=== PATIENT | female | born 1995 | race Caucasian/White ===

== ENCOUNTER 2017-03-18 16:13 | Emergency (ER) | payer OTHER ==
[2017-03-18 16:19] VITALS: BP 116/72; PULSE 115; TEMP 99; BMI 25.9
[2017-03-18] MEDS ORDERED: DEXAMETHASONE SOD PHOSPHATE 10 MG/1 ML VIAL IM ONE (17:04)
[2017-03-18] MEDS ORDERED: PENICILLIN G BENZATHINE 1,200,000 UNIT/2 ML PFS IM ONE (17:05)
[2017-03-18] MEDS ORDERED: PENICILLIN G BENZATHINE 2,400,000 UNIT/4 ML PFS ONE (17:05)
[2017-03-18] MEDS ORDERED: DEXAMETHASONE SOD PHOSPHATE 10 MG/1 ML VIAL ONE (17:05)
--- NOTE | 2017-03-18 17:08 | PDOC ---
History of Present Illness - General Chief Complaint: Sore Throat Stated Complaint: SORE THROAT Time Seen by Provider: 03/18/17 17:01 History Source: Patient Exam Limitations: No Limitations - History of Present Illness Initial Comments: 03/18/17 17:05 ` Here with complaints of severe sore throat, swelling, and fevers 3 days. States onset was Friday and is progressively worsened. Is able to swallow fluids but is anorexic Timing/Duration: unsure Severity: mild, moderate Associated Symptoms: reports: fever/chills, headaches, malaise Past History - Travel Traveled outside of the country in the last 30 days: No Close contact w/someone who was outside of country & ill: No - Past Medical History Allergies/Adverse Reactions: Allergies Allergy/AdvReac Type Severity Reaction Status Date / Time No Known Allergies Allergy Verified 03/18/17 16:18 Home Medications: Ambulatory Orders NK [No Known Home Medication] 03/18/17 Asthma: No Cancer: No Cardiac Disorders: No Diabetes: No HTN: No Seizures: No Thyroid Disease: No Other medical history: DENIES - Psycho/Social/Smoking Cessation Hx Suicidal Ideation: No Smoking History: Never smoked Have you smoked in the past 12 months: No Information on smoking cessation initiated: No Hx Alcohol Use: No Drug/Substance Use Hx: No Substance Use Type: None Hx Substance Use Treatment: No Review of Systems - Review of Systems Able to Perform ROS?: Yes Is the patient limited Slovak proficient: Yes Constitutional: Yes: Symptoms Reported, See HPI, Fever, Malaise HEENTM: Yes: Symptoms Reported, See HPI, Nose Congestion, Throat Pain, Throat Swelling, Difficulty Swallowing Respiratory: Yes: See HPI, Cough. No: Symptoms reported ABD/GI: Yes: See HPI. No: Symptoms Reported Musculoskeletal: Yes: Symptoms Reported, See HPI Neurological: Yes: Symptoms reported, See HPI. No: Headache All Other Systems: Reviewed and Negative *Physical Exam - Vital Signs Last Vital Signs Temp Pulse Resp BP Pulse Ox 99 F 115 H 19 116/72 97 03/18/17 16:17 03/18/17 16:17 03/18/17 16:17 03/18/17 16:17 03/18/17 16:17 - Physical Exam General Appearance: Yes: Nourished, Appropriately Dressed, Apparent Distress HEENT: positive: EOMI, MEHNAZ, TMs Normal, Muffled/Hoarse voice, Tonsillar Exudate , Tonsillar Erythema, Nasal Congestion, Rhinorrhea. negative: Normal ENT Inspection, Pharynx Normal, TM Erythema Neck: positive: Tender, Supple, Lymphadenopathy (R), Lymphadenopathy (L) Respiratory/Chest: positive: Lungs Clear, Normal Breath Sounds Cardiovascular: positive: Regular Rhythm Musculoskeletal: positive: Normal Inspection Integumentary: positive: Normal Color, Dry, Warm, Pale Neurologic: positive: program therapist II-XII NML intact, Fully Oriented, Alert, Normal Mood/ Affect, Normal Response, Motor Strength 11/15 Medical Decision Making - Medical Decision Making 03/18/17 17:40 Patient medicated with Bicillin LA 1.2 million units IM with no reaction after 30 minutes. States feels better and ready for discharge 03/18/17 17:07 *DC/Admit/Observation/Transfer Diagnosis at time of Disposition: Pharyngitis Qualifiers: Pharyngitis/tonsillitis etiology: unspecified etiology Qualified Code(s): J02.9 - Acute pharyngitis, unspecified - Discharge Dispostion Disposition: HOME Condition at time of disposition: Stable Admit: No - Patient Instructions Printed Discharge Instructions: DI for Pharyngitis/Tonsillopharyngitis -- Adult Additional Instructions: Rest, drink lots of fluids: Teas, water, soups Eat cold things: Ice cream, ice pops, ice chips Saltwater gargles Steamy showers/seem to face break up mucus Avoid contact with others until fevers and pain resolved Lots of handwashing and good hygiene, this is contagious You have been treated with Bicillin LA 1.2 million units injection which is a one-time treatment for strep pharyngitis. You will not need to take any further antibiotics. Tylenol or Motrin for fever and pain Followup with private physician in one to 2 days as needed if not improving Return to emergency department for worsened symptoms, fevers, dehydration
== END 2017-03-18 17:32 | disposition home or self-care (01) ==
LOC: JERFT 16:13
PROC: 3E0233Z Introduction of Anti-inflammatory into Muscle, Percutaneous Approach (ICD-10-PCS; principal; 2017-03-18)
PROC: 3E02329 Introduction of Other Anti-infective into Muscle, Percutaneous Approach (ICD-10-PCS; 2017-03-18)
DX: J02.9 Acute pharyngitis, unspecified (principal)
CPT/HCPCS: 99281-25

== ENCOUNTER 2023-08-02 11:39 | Emergency (ER) | payer OTHER ==
[2023-08-02 11:47] VITALS: BP 107/73; PULSE 99; RESP 20; TEMP 98.4
[2023-08-02] MEDS ORDERED: FAMOTIDINE 20 MG TABLET PO ONE (12:06)
[2023-08-02] MEDS ORDERED: DEXAMETHASONE SOD PHOSPHATE 10 MG/1 ML VIAL IM ONE (12:06)
[2023-08-02] MEDS ORDERED: DEXAMETHASONE SOD PHOSPHATE 10 MG/1 ML VIAL ONE (12:28)
[2023-08-02] MEDS ORDERED: FAMOTIDINE 20 MG TABLET ONE (12:28)
== END 2023-08-02 13:08 | disposition home or self-care (01) ==
LOC: JERFT 11:39
PROC: 3E023GC Introduction of Other Therapeutic Substance into Muscle, Percutaneous Approach (ICD-10-PCS; principal; 2023-08-02)
DX: L50.9 Urticaria, unspecified (principal); T78.40XA Allergy, unspecified, initial encounter
CPT/HCPCS: 99284-25; J1100